=== PATIENT | male | born 1985 | race Two or more races ===

== ENCOUNTER 2021-08-24 07:47 | Emergency (ER) | payer BC ==
[~2021-08-24] VITALS: Ht 182.9 cm; Wt 104.3 kg
--- NOTE | 2021-08-24 07:47 | NUR ---
BIB FRIEND S/P LEFT WRIST LACERATION SUSTAINED AT HOME WITH A BROKEN GLASS. PRESSURE APPLIED TO SITE. VITALS ARE STABLE. AWAITING MD BOYLE.
[2021-08-24] MEDS ORDERED: LIDOCAINE 1%-EPI 1:100,000 20 ML VIAL ONE (08:04)
--- NOTE | 2021-08-24 08:06 | NUR ---
DR MARTIN AT BEDSIDE
--- NOTE | 2021-08-24 08:29 | NUR ---
PROFESSIONAL NURSE AT BEDSIDE
[2021-08-24] MEDS ORDERED: TDAP [DIPH/PERTUSSIS/TET] 0.5 ML VIAL IM ONE ×2 (08:46→09:00)
[2021-08-24 08:57] LABS: BASOPHILS % (AUTO) 0.7 % (0.0-2.0); EOSINOPHILS % (AUTO) 1.9 % (0.0-6.0); HEMATOCRIT 42 % (39-51); HEMOGLOBIN 13.9 g/dL (13.5-17.5); LYMPHOCYTES # (AUTO) 2.6 K/uL (0.8-4.8); LYMPHOCYTES % (AUTO) 43.7 % (20.0-44.0); MEAN CORPUSCULAR HGB CONC 33 g/dl (31.0-36.0); MEAN CORPUSCULAR VOLUME 84 fL (80-96); MONOCYTES # (AUTO) 0.3 K/uL (0.1-1.30); MONOCYTES % (AUTO) 5.5 % (2.0-12.0); NEUTROPHILS # (AUTO) 2.9 K/uL (1.8-8.9); NEUTROPHILS % (AUTO) 48.2 % (43.0-81.0); PLATELET COUNT (AUTO) 214 K/uL (150-450); RED BLOOD CELL COUNT(AUTO) 4.95 MIL/uL (4.5-6.0); WHITE BLOOD COUNT (AUTO) 5.9 K/uL (4.3-11.0)
--- NOTE | 2021-08-24 09:29 | NUR ---
Patient discharged to home in stable condition. Written and verbal after care instructions given. Patient verbalizes understanding of instruction.
[2021-08-24 09:30] VITALS: BP 129/86
== END 2021-08-24 09:31 | disposition home or self-care (01) ==
LOC: ER 07:59
DX: S61.412A Laceration without foreign body of left hand, initial encounter (principal); W26.8XXA Contact with other sharp object(s), not elsewhere classified, initial encounter; Y93.89 Activity, other specified; Y92.89 Other specified places as the place of occurrence of the external cause; Y99.8 Other external cause status
CPT/HCPCS: 12002; 36415; 85025; 90471; 90715; 99283; A6403; J3490